=== PATIENT | female | born 1985 | race Caucasian/White ===

== ENCOUNTER 2022-05-09 10:31 | Inpatient (IN) | payer OTHER, SELFPAY ==
[2022-05-09 10:45] VITALS: BP 145/81; PULSE 95; RESP 18; TEMP 36.8; O2SAT 97; BMI 47.0
--- NOTE | 2022-05-09 11:04 | ED_ITS ---
HPI - Psych General Chief Complaint: Psychiatric Symptoms Stated Complaint: SI Time Seen by Provider: 05/09/22 10:47 Source: patient Mode of arrival: ambulatory Limitations: no limitations History of Present Illness MD complaint: suicidal ideation and feels depressed Onset (ago): day(s) (1) Duration: getting worse History of same: Yes Relieving factors: none Exacerbating factors: other Context: significant life stressor Associated psychiatric symptoms: depression and suicidal ideation Associated symptoms: denies other symptoms Treatments prior to arrival: none If self harm: admits thoughts of self harm Related Data Allergies Allergy/AdvReac Type Severity Reaction Status Date / Time Penicillins Allergy Unknown Unknown Verified 05/09/22 10:56 amoxicillin Allergy Unknown Unknown Uncoded 05/09/22 10:56 Review of Systems Review of Systems: Constitutional : No Fever, No Chills ENT/Mouth : No Ear Pain, No Nasal Congestion, No sore throat Eyes: No Eye Pain, No Swelling, No Redness Cardiovascular : No Chest Pain, No SOB Respiratory : No Cough, No Sputum, No Dyspnea Gastrointestinal : No Nausea, No Vomiting, No Diarrhea, No Hematochezia, No Melena Genitourinary : No Dysuria, No Urinary Frequency, No Hematuria Musculoskeletal : No Myalgias Skin : No Skin Lesions, No rash Neuro : No Weakness, No Numbness, No Paresthesias, No Dizziness, No Headache Psych : positive Anxiety, positive Depression, positive SI no HI Heme/Lymph: No Lymphadenopathy Endocrine : No Polyuria, No Polydipsia All other systems reviewed and are negative PMFSH Past Medical History Attestation statement: The following information was validated with the patient. Medical History Bipolar 1 disorder Social History Social History (Updated 05/09/22 @ 11:05 by Maria Del Carmen Conklin DO) Patient Tobacco Use Status: Tobacco use Unknown Substance Use Type: Marijuana Physical Exam Vital Signs: Vital Signs: Last Vital Signs Temp 98.2 F 05/09/22 10:45 Pulse 95 05/09/22 10:45 Resp 18 05/09/22 10:45 BP 145/81 H 05/09/22 10:45 Pulse Ox 97 05/09/22 10:45 O2 Del Method 05/09/22 10:45 BMI result Body Mass Index 47.0 Appearance: Alert. Oriented X3. No acute distress. Tearful and appears anxious at times Eyes: Pupils equal, round and reactive to light. ENT: Pharynx normal. Neck: Normal inspection. Neck supple. CVS: Normal heart rate and rhythm. Pulses normal. Respiratory: No respiratory distress. Breath sounds normal. Abdomen: Soft and nontender. Skin: Skin warm and dry. Normal skin color. Normal skin turgor. Extremities: No lower extremity edema. No calf ttp Neuro: Oriented X 3. No motor deficit. No sensory deficit. CN2-12 intact Course Course Course Narrative: Physician observation started at 1110am Patient placed in physician observation because the patient needed more time for BHN to assess the need for psych admission. At the time observation was started the patient's vitals were stable, patient is alert and oriented but slightly anxious, Neuro: nonfocal, CV RRR, Lungs clear MDM - Psych MDM Narrative Medical decision making narrative: 37 yo female hx of bipolar disorder states she is in a detention house for THC use - normally goes to [place] for her mental health issues states she is here for SI. At this time labs, BHN consult in place. Dispo per their recommendations. Discharge Plan Discharge Clinical Impression: Suicidal ideation Patient Disposition: Still a Patient
[2022-05-09 11:47] LABS: UPreg QC Valid YES; Urine Pregnancy NEGATIVE (NEGATIVE)
[2022-05-09 12:01] LABS: Amphetamine Screen Urine Not Detected (Not Detect); Barbiturates, Urine Not Detected (Not Detect); Benzodiazepines Screen Urine Not Detected (Not Detect); Cannabinoid Screen Urine Not Detected (Not Detect); Cocaine Screen Urine Not Detected (Not Detect); Fentanyl, urine Not Detected (Not Detect); Opiate Screen Urine Not Detected (Not Detect); Phencyclidine Screen Urine Not Detected (Not Detect)
[2022-05-09 12:05] LABS: MANUAL DIFF FLAG NO
[2022-05-09 12:07] LABS: COVID-19 Test Negative (Negative); IDNOW Serial# 16C4AD1C
[2022-05-09 12:08] LABS: Basophils Absolute Auto 0.1 X10*3/uL (0.0-0.2); Basophils Percent Auto 0.8 % (0-2); Eosinophils Absolute Auto 0.1 X10*3/uL (0.0-0.4); Eosinophils Percent Auto 1.5 % (0-4); Hematocrit 39.8 % (37.0-47.0); Hemoglobin 12.9 g/dl (12.0-16.0); Imm Gran Abs Auto 0.02 X10*3/uL (0.00-0.03); Imm Gran Pct Auto 0.3 % (0.0-0.4); Lymphocytes Absolute Auto 1.6 X10*3/uL (1.2-4.9); Lymphocytes Percent Auto 21.2 % (20-40); Mean Corpuscular HGB Conc 32.4 g/dl (31.0-35.0); Mean Corpuscular Hemoglobin 28.2 pg (27.0-33.0); Mean Corpuscular Volume 86.9 fL (80.0-98.0); Mean Platelet Volume 9.7 fL (9.4-12.3); Monocytes Absolute Auto 0.7 X10*3/uL (0.1-1.2); Monocytes Percent Auto 9.8 % (2-11); Neutrophils Absolute Auto 4.9 x10*3/uL (2.0-8.3); Neutrophils Percent Auto 66.4 % (45-73); Platelet Count 317 X10*3/uL (160-400); Red Blood Count 4.58 X10*6/uL (4.20-5.50); Red Cell Distribution Width 13.5 % (11.0-16.0); White Blood Count 7.4 X10*3/uL (4.8-10.8)
[2022-05-09 12:28] LABS: Alanine Aminotransferase 12 U/L (0-31); Albumin Level 4.3 g/dL (3.5-5.0); Alkaline Phosphatase 75 U/L (39-117); Anion Gap 15 (12-20); Aspartate Amino Transferase 12 U/L (5-31); Bilirubin Direct < 0.2 mg/dL (0.0-0.5); Bilirubin Total 0.3 mg/dL (0.0-1.0); Blood Urea Nitrogen 9 mg/dL (9-16); Calcium 9.4 mg/dL (8.4-10.2); Carbon Dioxide 25 mmol/L (22-29); Chloride 104 mmol/L (96-108); Creatinine Clr Calc Pharmacy 139.2; Estimated Glomerular Filt Rate > 60; Glucose Random 87 mg/dL (60-115); Magnesium 1.9 mg/dL (1.6-2.6); Potassium 4.5 mmol/L (3.3-5.1); Sodium 139 mmol/L (135-145); Total Protein 7.3 g/dL (6.5-8.0)
--- NOTE | 2022-05-09 12:44 | PHA.MEDREC ---
Pharmacy Consult ? Medication Reconciliation Pharmacy has completed the medication reconciliation.
--- NOTE | 2022-05-09 12:45 | HE.PHANOTE ---
Nurse (Kev) received many pt own medications. All medications were formulary medications, therefore we chose to seal up patients meds and leave it with pharmacy. Patient had about 8 bottles from [facility] pharmacy. Meds were sealed in med envelope and I brought it upstairs and placed it inside the pharmacy CII safe. Informed the nurse to leave these forms with patients chart to ensure patient receives them prior to discharge.
[2022-05-09 16:09] VITALS: BP 139/84; PULSE 83; RESP 17; TEMP 36.5; O2SAT 100
[2022-05-09] MEDS: Cholecalciferol (Vitamin D3) 25 MCG TABLET PO (16:39)
[2022-05-09] MEDS: Folic Acid 1 MG TABLET PO (16:39)
[2022-05-09] MEDS: ARIPiprazole 15 MG TABLET PO (16:39)
[2022-05-09] MEDS: buPROPion HCl XL 300 MG TAB.ER.24H PO (16:39)
[2022-05-09] MEDS: lamoTRIgine 100 MG TABLET 200 MG PO (19:59)
--- NOTE | 2022-05-09 22:49 | PC.NURSE ---
Patient has been sleeping comfortably, she was up for her PM medication, denies any issues at this time. Will continue to monitor.
--- NOTE | 2022-05-10 06:29 | MHC.CARE ---
Smart sheet submitted
--- NOTE | 2022-05-10 07:03 | PC.NURSE ---
Patient sleeping comfortably, no distress noted. Will continue to monitor.
[2022-05-10] MEDS: ARIPiprazole 15 MG TABLET PO (08:34)
[2022-05-10] MEDS: buPROPion HCl XL 300 MG TAB.ER.24H PO (08:34)
[2022-05-10] MEDS: lamoTRIgine 100 MG TABLET 200 MG PO ×2 (08:34→19:45)
[2022-05-10] MEDS: Cholecalciferol (Vitamin D3) 25 MCG TABLET PO (08:34)
[2022-05-10] MEDS: Folic Acid 1 MG TABLET PO (08:34)
[2022-05-10] MEDS: Acetaminophen 325 MG TABLET 650 MG PO (08:42)
--- NOTE | 2022-05-10 11:04 | PC.NURSE ---
resting comfortably throughout morning, ate breakfast, took all meds. seen by [facility].
--- NOTE | 2022-05-10 12:04 | PC.NURSE ---
occupational therapy at bedside with pt. pt aware of plan of care.
[2022-05-10 13:37] VITALS: BP 100/48; PULSE 78; RESP 18; TEMP 36.9; O2SAT 97
--- NOTE | 2022-05-10 13:40 | MHC.CARE ---
Pt seen this day for individual OT tx. Pt presents with solemn flat affect and reports feeling overwhelmed however agreeable to engage in conversation with this chief writer. Pt is receptive to coloring pages, word finds, and sensory item provided. Upon conclusion of session pt actively engages in coloring activity provided.
[2022-05-10] MEDS: Acetaminophen 325 MG TABLET 975 MG PO (19:46)
--- NOTE | 2022-05-11 06:24 | PC.NURSE ---
Patient slept through the night, no distress observed/reported, medication compliant, behavior pleasant and non concerning, disposition per [facility] is voluntary inpatient bed search, VSS, will continue to monitor.
[2022-05-11 06:27] VITALS: BP 114/55; PULSE 75; RESP 17; TEMP 36.9; O2SAT 97
[2022-05-11] MEDS: Folic Acid 1 MG TABLET PO (07:37)
[2022-05-11] MEDS: ARIPiprazole 15 MG TABLET PO (07:37)
[2022-05-11] MEDS: lamoTRIgine 100 MG TABLET 200 MG PO ×2 (07:37→20:35)
[2022-05-11] MEDS: buPROPion HCl XL 300 MG TAB.ER.24H PO (07:37)
[2022-05-11] MEDS: Cholecalciferol (Vitamin D3) 25 MCG TABLET PO (07:37)
[2022-05-11] MEDS: hydrOXYzine HCL 25 MG TABLET PO (07:40)
--- NOTE | 2022-05-11 07:41 | PC.NURSE ---
PT A/O X 4 NO SOB/BA NOTED SKIN PINK WARM DRY SPEAKS IN FULL SENTENCES. PT IS WATCHING TV. C/O SLIGHT ANXIETY, MED X 1 WITH ATARAX 25MG PO. PT IS BED SEARCH, PT IS AWARE OF PLAN OF CARE.
[2022-05-11 09:12] VITALS: BP 124/63; PULSE 78; RESP 16; TEMP 36.8; O2SAT 97
--- NOTE | 2022-05-11 11:25 | PC.NURSE ---
RN TO RN REPORT GIVEN TO PRADEEP PT AWARE OF PLAN OF CARE FOR INPATIENT BED.
[2022-05-11 13:40] VITALS: BP 147/72; PULSE 96; TEMP 36.3
--- NOTE | 2022-05-11 15:51 | PC.ADMIT ---
Pt is a 37 year old female presenting with increased hopelessness, anxiety and depression with SI. Pt utox positive for THC. Pt COVID negative. Pt is looking to get her medications figured out and to find housing as pt is homeless. Pt came from [facility] and liked it, but the pt is from [facility] and is homesick. She wants to go to her old [facility] in [facility]. She was removed from [facility] for relapsing on marijuana. Pt is labile and feels hopeless and she has no where to go. Pt states her depression and anxiety has been so bad its been difficult to shower. PT advocates for self and calm and cooperative, tearful. Provider notified and orders are placed. Monitor for safety and start pt treatment. Pt reports feeling safe and able to come to staff if needed.
[2022-05-11 18:04] VITALS: BP 119/69; PULSE 100; TEMP 36.3; O2SAT 96
[2022-05-11] MEDS: traZODone HCL 50 MG TABLET PO (20:34)
[2022-05-12] MEDS: Cholecalciferol (Vitamin D3) 25 MCG TABLET PO (09:18)
[2022-05-12] MEDS: Folic Acid 1 MG TABLET PO (09:18)
[2022-05-12] MEDS: ARIPiprazole 15 MG TABLET PO (09:18)
[2022-05-12] MEDS: buPROPion HCl XL 300 MG TAB.ER.24H PO (09:18)
[2022-05-12] MEDS: lamoTRIgine 100 MG TABLET 200 MG PO ×2 (09:19→20:01)
[2022-05-12 09:47] VITALS: BP 96/59; PULSE 73; RESP 16; TEMP 37.1; O2SAT 95
--- NOTE | 2022-05-12 10:50 | HO.PSYADMNOT ---
HPI Date of Service: 05/12/22 Chief Complaint: depression/SI Sources of Information: patient interviewed, chart reviewed and crisis/core team assessment reviewed HPI Subjective Notes: Conditional Voluntary Medical Problems Affecting Mental Status: No Narrative: As per nursing admission note: 37 year old female presenting with increased hopelessness, anxiety and depression with SI. Pt utox positive for THC. Pt COVID negative. Pt is looking to get her medications figured out and to find housing as pt is homeless. Pt came from [facility] and liked it, but the pt is from [facility] and is homesick. She wants to go to her old [facility] [place] in [facility]. She was removed from [facility] for relapsing on marijuana. Pt is labile and feels hopeless and she has no where to go. Pt states her depression and anxiety has been so bad its been difficult to shower. PT advocates for self and calm and cooperative, tearful Today reports feeling depressed, hopeless, suicidal. Denies plans. Sleep energy and appetite all last. Reports feeling this way for 2 weeks. No severiano. No psychosis. Denies recent substance use. Had been off medications for the best part of 3 weeks but restarted 2 weeks ago. Currently on Lamictal 200 mg and Abilify. Reports diagnosis of bipolar 2 disorder and last hypomanic episode was 2 years ago. Reports main issue with being off medication was relocating from [facility] to [facility]. Past medications she was unsure about but reports being on lithium in the past. Does not want to go back on lithium. Never on Seroquel but does not want to try same. Never on Vraylar. Past Psychiatric History: Diagnosis of bipolar 2 disorder. Substance use disorder. Last inpatient episode was in February. Denied history of suicide attempts. No providers in this area as from [facility]. On Lamictal and Abilify Medical Evaluation Reviewed: Yes [facility] Medical History Bipolar 1 disorder Social History: At [facility] [place] in [facility]. Originally from the [facility] and hopeful she can go to a different [facility] [place] closer to home. Single. No children. No legal issues. Denied any supportive family Substance History: Marijuana Trauma History: Denied Diagnostics Vital Signs (24Hr): Vital Signs - 24 hr 05/11/22 13:40 05/11/22 18:04 05/12/22 09:47 Temperature 97.4 F 97.4 F 98.8 F Pulse Rate 96 100 73 Respiratory Rate 16 Blood Pressure 147/72 H 119/69 96/59 L Pulse Oximetry 96 95 Oxygen Delivery Method Room Air Room Air BMI result Body Mass Index 47.0 Labs Results: 05/09/22 12:01 05/09/22 12:01 Meds/Allergies Meds Home Medications Medication Instructions Recorded Confirmed Type aripiprazole 15 mg tablet 1 tab PO DAILY 05/09/22 05/09/22 History bupropion HCl 300 mg 24 hr tablet, 1 tab PO DAILY 05/09/22 05/09/22 History extended release cholecalciferol (vitamin D3) 25 1 tab PO DAILY 05/09/22 05/09/22 History mcg (1,000 unit) tablet folic acid 1 mg tablet 1 tab PO DAILY 05/09/22 05/09/22 History hydroxyzine pamoate 25 mg capsule 1 cap PO Q6H PRN anxiety 05/09/22 05/09/22 History lamotrigine 200 mg tablet 1 tab PO BID 05/09/22 05/09/22 History Allergies Allergies Allergy/AdvReac Type Severity Reaction Status Date / Time Penicillins Allergy Unknown Unknown Verified 05/09/22 10:56 amoxicillin Allergy Unknown Unknown Uncoded 05/09/22 10:56 Mental Status Exam Mental Status Exam Narrative: In bed. Appropriately dressed. Hygiene okay. Organized. Depressed. Endorses suicidal thoughts but no plans. Feels safe. No HI. No psychosis. Insight judgment okay Assessment & Plan Assessment & Plan (1) Bipolar 2 disorder, major depressive episode: Status: Acute Code(s): F31.81 - Bipolar II disorder Assessment and Plan: Presents with major depressive episodes in the context of bipolar 2 disorder. Relocation and recent medication changes for/being without same appear to be contributing to current presentation. Is hopeful she can relocate back to [facility]. Will increase Abilify to 20 mg otherwise maintain Lamictal 200 mg twice daily Patient educated on: medication risk/benefits Informed Consent: understands Reason for continued inpatient stay Substantial Risk for: harm to self
[2022-05-12 15:58] VITALS: BP 128/83; PULSE 87; TEMP 36.6
[2022-05-12] MEDS: traZODone HCL 50 MG TABLET PO (20:02)
[2022-05-13 06:00] VITALS: RESP 18
[2022-05-13] MEDS: lamoTRIgine 100 MG TABLET 200 MG PO ×2 (09:16→20:17)
[2022-05-13] MEDS: Folic Acid 1 MG TABLET PO (09:16)
[2022-05-13] MEDS: ARIPiprazole 20 MG TABLET PO (09:16)
[2022-05-13] MEDS: Cholecalciferol (Vitamin D3) 25 MCG TABLET PO (09:16)
[2022-05-13] MEDS: buPROPion HCl XL 300 MG TAB.ER.24H PO (09:16)
--- NOTE | 2022-05-13 13:15 | P.PNPSI_ITS ---
Subjective Subjective Date of Service: 05/13/22 Reason For Visit: depression/SI Subjective Notes: Conditional Voluntary Medical Problems Affecting Mental Status: No Interim History: Overall no significant issues since yesterday. Patient reports that sleep was poor last night. Also reports drinking 2 L of Coca[employer]a before bed. Education provided around potential impact of same. Reports mood slightly better. Is [id number] in [place] before. Reports having to leave this program in December and may not be able to return for 6 months or 1 year, but hopeful this may not be the case. Reports if she cannot return there, then she will return to [facility]. Reports her mom and support is in [place] and she is familiar with the meetings in that area also. Medication Compliance: Yes Side effects from medications: No Attending Groups: No Review of Systems Acute medical concerns: No Review of Systems Review of Systems Unremarkable Mental Status Exam Mental Status Exam Narrative: Appropriately dressed. Hygiene okay. Organized. Less depressed. Deny suicidal thoughts. Feels safe. No HI. No psychosis. Insight judgment okay Diagnostics Vital Signs (24Hr): Vital Signs - 24 hr 05/12/22 15:58 Temperature 97.8 F Pulse Rate 87 Blood Pressure 128/83 BMI result Body Mass Index 47.0 Labs Results: 05/09/22 12:01 05/09/22 12:01 Medications Medications Current Medications Acetaminophen (Acetaminophen 325 Mg Tablet) 650 mg PO Q6H PRN PRN Reason: Headache/Pain Mild Scale (1-3) Al Hydroxide/Mg Hydroxide (Magnesium Hydrox/Alum Hydrox 30 Ml Oral.Susp) 30 ml PO Q6H PRN PRN Reason: Heartburn/Nausea Aripiprazole (Aripiprazole 20 Mg Tablet) 20 mg PO DAILY MADDY Last Admin: 05/13/22 09:16 Dose: 20 mg Bupropion HCl (Bupropion Hcl Xl 300 Mg Tab.Er.24h) 300 mg PO DAILY MADDY Last Admin: 05/13/22 09:16 Dose: 300 mg Folic Acid (Folic Acid 1 Mg Tablet) 1 mg PO DAILY MADDY Last Admin: 05/13/22 09:16 Dose: 1 mg Hydroxyzine HCl (Hydroxyzine Hcl 25 Mg Tablet) 25 mg PO Q6H PRN PRN Reason: anxiety Last Admin: 05/11/22 07:40 Dose: 25 mg Hydroxyzine HCl (Hydroxyzine Hcl 25 Mg Tablet) 25 mg PO Q6H PRN PRN Reason: Anxiety Lamotrigine (Lamotrigine 100 Mg Tablet) 200 mg PO BID [facility] Last Admin: 05/13/22 09:16 Dose: 200 mg Magnesium Hydroxide (Milk Of Magnesia 30 Ml Oral.Susp) 30 ml PO DAILY PRN PRN Reason: Constipation Nicotine Polacrilex (Nicotine Polacrilex 2 Mg Gum) 4 mg BUCCAL Q2H PRN PRN Reason: Nicotine Cravings Trazodone HCl (Trazodone Hcl 50 Mg Tablet) 50 mg PO BEDTIME PRN PRN Reason: Insomnia Last Admin: 05/12/22 20:02 Dose: 50 mg Vitamin D (Cholecalciferol (Vitamin D3) 25 Mcg Tablet) 25 mcg PO DAILY [facility] Last Admin: 05/13/22 09:16 Dose: 25 mcg Allergies Allergies Allergy/AdvReac Type Severity Reaction Status Date / Time Penicillins Allergy Unknown Unknown Verified 05/09/22 10:56 amoxicillin Allergy Unknown Unknown Uncoded 05/09/22 10:56 Assessment & Plan Assessment & Plan (1) Bipolar 2 disorder, major depressive episode: Status: Acute Code(s): F31.81 - Bipolar II disorder Assessment and Plan: Presents with major depressive episodes in the context of bipolar 2 disorder. Relocation and recent medication changes for/being without same appear to be contributing to current presentation. Is hopeful she can relocate back to [facility]. Will increase Abilify to 20 mg otherwise maintain Lamictal 200 mg twice daily 05/13/22: hopeful she can return to [facility] she was staying in in [place] before. Reports having to leave this program in December and may not be able to return for 6 months or 1 year, but hopeful this may not be the case. Reports if she cannot return there, then she will return to [facility]. Reports her mom and support is in [place] and she is familiar with the meetings in that area also I spent minutes with the patient and/or on the patient floor today, greater than?50% of which was spent counseling/coordinating care. Reason for contiued inpatient stay Substantial Risk for: rapid decompensation
[2022-05-13 16:09] VITALS: BP 152/91; PULSE 114; TEMP 36.2
[2022-05-13] MEDS: traZODone HCL 50 MG TABLET PO (20:41)
[2022-05-14] MEDS: lamoTRIgine 100 MG TABLET 200 MG PO ×2 (08:27→19:20)
[2022-05-14] MEDS: Cholecalciferol (Vitamin D3) 25 MCG TABLET PO (08:28)
[2022-05-14] MEDS: Folic Acid 1 MG TABLET PO (08:28)
[2022-05-14] MEDS: buPROPion HCl XL 300 MG TAB.ER.24H PO (08:28)
[2022-05-14] MEDS: ARIPiprazole 20 MG TABLET PO (08:28)
[2022-05-14 09:58] VITALS: BP 113/51; PULSE 76; RESP 16; TEMP 36.4; O2SAT 96
--- NOTE | 2022-05-14 16:48 | P.PNPSI_ITS ---
Subjective Subjective Date of Service: 05/14/22 Reason For Visit: depression/SI Interim History: Patient reports that she is feeling better however she still depressed and would like Wellbutrin to be increased. It was started this past summer. Patient denies any SI and says all passive thoughts about being have fully resolved. Patient has trouble sleeping and says melatonin has helped in the past and prefers that. She also would like hydroxyzine increased. Patient is hopeful about getting back to previous residential. She has about history which includes ADHD but she has never been treated for it. No PTSD. patient reports history of alcohol abuse but denies all other drug abuse other than intermittent cannabis Mental Status Exam Mental Status Exam Narrative: Pt is alert and oriented; behavior is cooperative, friendly and calm; patient is not in distress; dressed in casual attire with unkempt hair but adequate hygiene; mood is described as good and affect congruent; eye contact appropriate; Speech is normal rate, volume and prosody and not pressured; no psychomotor agitation/retardation present; thought process is organized and goal directed; Thought content is on tx; otherwise pertinent to relevant topics and without any delusional content, paranoid ideations or grandiosity; denies any SI/HI. There is no evidence of perceptual disturbance. Patients insight and judgment appear intact. Diagnostics Vital Signs (24Hr): Vital Signs - 24 hr 05/14/22 09:58 Temperature 97.6 F Pulse Rate 76 Respiratory Rate 16 Blood Pressure 113/51 L Pulse Oximetry 96 Oxygen Delivery Method Room Air BMI result Body Mass Index 47.0 Labs Results: 05/09/22 12:01 05/09/22 12:01 Medications Medications Current Medications Acetaminophen (Acetaminophen 325 Mg Tablet) 650 mg PO Q6H PRN PRN Reason: Headache/Pain Mild Scale (1-3) Al Hydroxide/Mg Hydroxide (Magnesium Hydrox/Alum Hydrox 30 Ml Oral.Susp) 30 ml PO Q6H PRN PRN Reason: Heartburn/Nausea Aripiprazole (Aripiprazole 20 Mg Tablet) 20 mg PO DAILY [facility] Last Admin: 05/14/22 08:28 Dose: 20 mg Bupropion HCl (Bupropion Hcl Xl 300 Mg Tab.Er.24h) 300 mg PO DAILY [facility] Last Admin: 05/14/22 08:28 Dose: 300 mg Folic Acid (Folic Acid 1 Mg Tablet) 1 mg PO DAILY [facility] Last Admin: 05/14/22 08:28 Dose: 1 mg Hydroxyzine HCl (Hydroxyzine Hcl 25 Mg Tablet) 25 mg PO Q6H PRN PRN Reason: anxiety Last Admin: 05/11/22 07:40 Dose: 25 mg Hydroxyzine HCl (Hydroxyzine Hcl 25 Mg Tablet) 25 mg PO Q6H PRN PRN Reason: Anxiety Lamotrigine (Lamotrigine 100 Mg Tablet) 200 mg PO BID [facility] Last Admin: 05/14/22 08:27 Dose: 200 mg Magnesium Hydroxide (Milk Of Magnesia 30 Ml Oral.Susp) 30 ml PO DAILY PRN PRN Reason: Constipation Nicotine Polacrilex (Nicotine Polacrilex 2 Mg Gum) 4 mg BUCCAL Q2H PRN PRN Reason: Nicotine Cravings Trazodone HCl (Trazodone Hcl 50 Mg Tablet) 50 mg PO BEDTIME PRN PRN Reason: Insomnia Last Admin: 05/13/22 20:41 Dose: 50 mg Vitamin D (Cholecalciferol (Vitamin D3) 25 Mcg Tablet) 25 mcg PO DAILY [facility] Last Admin: 05/14/22 08:28 Dose: 25 mcg Allergies Allergies Allergy/AdvReac Type Severity Reaction Status Date / Time Penicillins Allergy Unknown Unknown Verified 05/09/22 10:56 amoxicillin Allergy Unknown Unknown Uncoded 05/09/22 10:56 Assessment & Plan Assessment & Plan (1) Bipolar 2 disorder, major depressive episode: Status: Acute Code(s): F31.81 - Bipolar II disorder Plan Presents with major depressive episodes in the context of bipolar 2 disorder. Relocation and recent medication changes for/being without same appear to be contributing to current presentation. Is hopeful she can relocate back to [facility]. Will increase Abilify to 20 mg otherwise maintain Lamictal 200 mg twice daily 05/13/22: [facility] in [place] before. Reports having to leave this program in December and may not be able to return for 6 months or 1 year, but hopeful this may not be the case. Reports if she cannot return there, then she will return to [facility]. Reports her mom and support is in [place] and she is familiar with the meetings in that area also 05/14 patient reports feeling better; denies SI and passive wish fully resolved; still feels depressed and would like Wellbutrin increased. Has been on Lamictal for years but was started on Abilify and Wellbutrin this past summer. Plan: CV Q 15 minute checks Increase Wellbutrin XL to 450 mg Continue Abilify 20 mg says; raised from 15 mg by admitting provider Continue Lamictal 200 mg b.i.d. Started melatonin at patient's request Increased Atarax at patient's request I spent minutes with the patient and/or on the patient floor today, gre ater than?50% of which was spent counseling/coordinating care. Patient educated on: diagnosis, medication risk/benefits and substance abuse Informed Consent: understands Reason for contiued inpatient stay Substantial Risk for: stable for discharge
[2022-05-14 18:00] VITALS: BP 128/84; PULSE 89; RESP 16; TEMP 36.8; O2SAT 97
[2022-05-14] MEDS: Melatonin 3 MG TABLET 9 MG PO (19:20)
[2022-05-15 06:00] VITALS: BP 92/63; PULSE 64; RESP 16; TEMP 36.7; O2SAT 96
[2022-05-15] MEDS: Cholecalciferol (Vitamin D3) 25 MCG TABLET PO (08:41)
[2022-05-15] MEDS: Folic Acid 1 MG TABLET PO (08:41)
[2022-05-15] MEDS: lamoTRIgine 100 MG TABLET 200 MG PO ×2 (08:41→21:24)
[2022-05-15] MEDS: buPROPion HCl XL 150 MG TAB.ER.24H 450 MG PO (08:41)
[2022-05-15] MEDS: ARIPiprazole 20 MG TABLET PO (08:42)
--- NOTE | 2022-05-15 17:00 | P.PNPSI_ITS ---
Subjective Subjective Date of Service: 05/15/22 Reason For Visit: depression/SI Interim History: Patient reports that her mood remains much better and though still depressed, feels overall to have significantly improved. She denies any SI or passive wish at all. Patient still has some trouble sleeping though she agrees this is a chronic issue and may not resolve on the unit. She forgot that she had multiple PRNs available to help her sleep and says she will avail of them tonight. Patient says she is feeling ready for discharge and asks if this will be allowed should a bed come up at desired program; promotion writer agrees that she is ready to continue treatment in the community and that this is the plan. Mental Status Exam Mental Status Exam Narrative: Pt is alert and oriented; behavior is cooperative, friendly and calm; patient is not in distress; dressed in casual attire with unkempt hair but adequate hygiene; mood is described as good and affect congruent; eye contact appropriate; Speech is normal rate, volume and prosody and not pressured; no psychomotor agitation/retardation present; thought process is organized and goal directed; Thought content is on tx; otherwise pertinent to relevant topics and without any delusional content, paranoid ideations or grandiosity; denies any SI/HI. There is no evidence of perceptual disturbance. Patients insight and judgment appear intact. Diagnostics Vital Signs (24Hr): Vital Signs - 24 hr 05/14/22 18:00 05/15/22 06:00 Temperature 98.2 F 98.1 F Pulse Rate 89 64 Respiratory Rate 16 16 Blood Pressure 128/84 92/63 Pulse Oximetry 97 96 Oxygen Delivery Method Room Air Room Air BMI result Body Mass Index 47.0 Labs Results: 05/09/22 12:01 05/09/22 12:01 Medications Medications Current Medications Acetaminophen (Acetaminophen 325 Mg Tablet) 650 mg PO Q6H PRN PRN Reason: Headache/Pain Mild Scale (1-3) Al Hydroxide/Mg Hydroxide (Magnesium Hydrox/Alum Hydrox 30 Ml Oral.Susp) 30 ml PO Q6H PRN PRN Reason: Heartburn/Nausea Aripiprazole (Aripiprazole 20 Mg Tablet) 20 mg PO DAILY [facility] Last Admin: 05/15/22 08:42 Dose: 20 mg Bupropion HCl (Bupropion Hcl Xl 150 Mg Tab.Er.24h) 450 mg PO DAILY [facility] Last Admin: 05/15/22 08:41 Dose: 450 mg Folic Acid (Folic Acid 1 Mg Tablet) 1 mg PO DAILY [facility] Last Admin: 05/15/22 08:41 Dose: 1 mg Hydroxyzine HCl (Hydroxyzine Hcl 50 Mg Tablet) 50 mg PO Q6H PRN PRN Reason: anxiety/insomnia Lamotrigine (Lamotrigine 100 Mg Tablet) 200 mg PO BID [facility] Last Admin: 05/15/22 08:41 Dose: 200 mg Magnesium Hydroxide (Milk Of Magnesia 30 Ml Oral.Susp) 30 ml PO DAILY PRN PRN Reason: Constipation Melatonin (Melatonin 3 Mg Tablet) 9 mg PO BEDTIME [facility] Last Admin: 05/14/22 19:20 Dose: 9 mg Nicotine Polacrilex (Nicotine Polacrilex 2 Mg Gum) 4 mg BUCCAL Q2H PRN PRN Reason: Nicotine Cravings Trazodone HCl (Trazodone Hcl 100 Mg Tablet) 100 mg PO BEDTIME [facility] Vitamin D (Cholecalciferol (Vitamin D3) 25 Mcg Tablet) 25 mcg PO DAILY [facility] Last Admin: 05/15/22 08:41 Dose: 25 mcg Allergies Allergies Allergy/AdvReac Type Severity Reaction Status Date / Time Penicillins Allergy Unknown Unknown Verified 05/09/22 10:56 amoxicillin Allergy Unknown Unknown Uncoded 05/09/22 10:56 Assessment & Plan Assessment & Plan (1) Bipolar 2 disorder, major depressive episode: Status: Acute Code(s): F31.81 - Bipolar II disorder Plan Presents with major depressive episodes in the context of bipolar 2 disorder. Relocation and recent medication changes for/being without same appear to be contributing to current presentation. Is hopeful she can relocate back to [facility]. Will increase Abilify to 20 mg otherwise maintain Lamictal 200 mg twice daily 05/13/22: hopeful she can return to [facility] she was staying in in [place] before. Reports having to leave this program in December and may not be able to return for 6 months or 1 year, but hopeful this may not be the case. Reports if she cannot return there, then she will return to [facility]. Reports her mom and support is in [place] and she is familiar with the NA meetings in that area also 05/14 patient reports feeling better; denies SI and passive wish fully resolved; still feels depressed and would like Wellbutrin increased. Has been on Lamictal for years but was started on Abilify and Wellbutrin this past summer. 05/15 patient remains in significantly improved mood, no SI no passive wish, no AVH; tolerating medications well. Still some trouble with insomnia however this is chronic. Patient will try to use more PRNs. Patient feels ready for discharge back to program when bed is available; promotion writer agrees that she is ready to continue treatment in the community. That said, promotion writer feels it is significantly in patient's best interest that she be discharge back to a structured environment for continued stability. Plan: CV Q 15 minute checks Increase Wellbutrin XL to 450 mg Continue Abilify 20 mg says; raised from 15 mg by admitting provider Continue Lamictal 200 mg b.i.d. Started melatonin at patient's request Increased Atarax at patient's request I spent minutes with the patient and/or on the patient floor today, greater than?50% of which was spent counseling/coordinating care. Patient educated on: diagnosis and medication risk/benefits Informed Consent: understands Reason for contiued inpatient stay Substantial Risk for: stable for discharge
[2022-05-15 18:00] VITALS: BP 143/79; PULSE 90; TEMP 36.6; O2SAT 97
[2022-05-15] MEDS: Melatonin 3 MG TABLET 9 MG PO (21:25)
[2022-05-15] MEDS: traZODone HCL 100 MG TABLET PO (21:25)
[2022-05-16] MEDS: buPROPion HCl XL 150 MG TAB.ER.24H 450 MG PO (08:26)
[2022-05-16] MEDS: Cholecalciferol (Vitamin D3) 25 MCG TABLET PO (08:27)
[2022-05-16] MEDS: lamoTRIgine 100 MG TABLET 200 MG PO ×2 (08:27→21:24)
[2022-05-16] MEDS: Folic Acid 1 MG TABLET PO (08:27)
[2022-05-16] MEDS: ARIPiprazole 20 MG TABLET PO (08:28)
[2022-05-16 09:19] VITALS: RESP 16
--- NOTE | 2022-05-16 11:01 | P.PNPSI_ITS ---
Subjective Subjective Date of Service: 05/16/22 Reason For Visit: depression/SI Interim History: Patient reports mood is good, no SI, still wants to discharge back to program; still having trouble sleep. Mental Status Exam Mental Status Exam Narrative: Pt is alert and oriented; behavior is cooperative, friendly and calm; patient is not in distress; dressed in casual attire with unkempt hair but adequate hygiene; mood is described as good and affect congruent; eye contact appropriate; Speech is normal rate, volume and prosody and not pressured; no psychomotor agitation/retardation present; thought process is organized and goal directed; Thought content is on tx; otherwise pertinent to relevant topics and without any delusional content, paranoid ideations or grandiosity; denies any SI/HI. There is no evidence of perceptual disturbance. Patients insight and judgment appear intact. Diagnostics Vital Signs (24Hr): Vital Signs - 24 hr 05/15/22 18:00 05/16/22 09:19 Temperature 97.8 F Pulse Rate 90 Respiratory Rate 16 Blood Pressure 143/79 H Pulse Oximetry 97 Oxygen Delivery Method Room Air BMI result Body Mass Index 47.0 Labs Results: 05/09/22 12:01 05/09/22 12:01 Medications Medications Current Medications Acetaminophen (Acetaminophen 325 Mg Tablet) 650 mg PO Q6H PRN PRN Reason: Headache/Pain Mild Scale (1-3) Al Hydroxide/Mg Hydroxide (Magnesium Hydrox/Alum Hydrox 30 Ml Oral.Susp) 30 ml PO Q6H PRN PRN Reason: Heartburn/Nausea Aripiprazole (Aripiprazole 20 Mg Tablet) 20 mg PO DAILY [facility] Last Admin: 05/16/22 08:28 Dose: 20 mg Bupropion HCl (Bupropion Hcl Xl 150 Mg Tab.Er.24h) 450 mg PO DAILY [facility] Last Admin: 05/16/22 08:26 Dose: 450 mg Folic Acid (Folic Acid 1 Mg Tablet) 1 mg PO DAILY [facility] Last Admin: 05/16/22 08:27 Dose: 1 mg Hydroxyzine HCl (Hydroxyzine Hcl 50 Mg Tablet) 50 mg PO Q6H PRN PRN Reason: anxiety/insomnia Lamotrigine (Lamotrigine 100 Mg Tablet) 200 mg PO BID [facility] Last Admin: 05/16/22 08:27 Dose: 200 mg Magnesium Hydroxide (Milk Of Magnesia 30 Ml Oral.Susp) 30 ml PO DAILY PRN PRN Reason: Constipation Melatonin (Melatonin 3 Mg Tablet) 9 mg PO BEDTIME [facility] Last Admin: 05/15/22 21:25 Dose: 9 mg Nicotine Polacrilex (Nicotine Polacrilex 2 Mg Gum) 4 mg BUCCAL Q2H PRN PRN Reason: Nicotine Cravings Trazodone HCl (Trazodone Hcl 100 Mg Tablet) 100 mg PO BEDTIME [facility] Last Admin: 05/15/22 21:25 Dose: 100 mg Vitamin D (Cholecalciferol (Vitamin D3) 25 Mcg Tablet) 25 mcg PO DAILY [facility] Last Admin: 05/16/22 08:27 Dose: 25 mcg Allergies Allergies Allergy/AdvReac Type Severity Reaction Status Date / Time Penicillins Allergy Unknown Unknown Verified 05/09/22 10:56 amoxicillin Allergy Unknown Unknown Uncoded 05/09/22 10:56 Assessment & Plan Assessment & Plan (1) Bipolar 2 disorder, major depressive episode: Status: Acute Code(s): F31.81 - Bipolar II disorder Plan Presents with major depressive episodes in the context of bipolar 2 disorder. Relocation and recent medication changes for/being without same appear to be contributing to current presentation. Is hopeful she can relocate back to [facility]. Will increase Abilify to 20 mg otherwise maintain Lamictal 200 mg twice daily 05/13/22: hopeful she can return to [facility] she was staying in in [place] before. Reports having to leave this program in December and may not be able to return for 6 months or 1 year, but hopeful this may not be the case. Reports if she cannot return there, then she will return to [facility]. Reports her mom and support is in [place] and she is familiar with the meetings in that area also 05/14 patient reports feeling better; denies SI and passive wish fully resolved; still feels depressed and would like Wellbutrin increased. Has been on Lamictal for years but was started on Abilify and Wellbutrin this past s ummer. 05/15 patient remains in significantly improved mood, no SI no passive wish, no AVH; tolerating medications well. Still some trouble with insomnia however this is chronic. Patient will try to use more PRNs. Patient feels ready for discharge back to [facility] when bed is available; development writer agrees that she is ready to continue treatment in the community. That said, development writer feels it is significantly in patient's best interest that she be discharge back to a structured environment for continued stability. 05/16 patient remained stable Plan: CV Q 15 minute checks Increase Wellbutrin XL to 450 mg Continue Abilify 20 mg says; raised from 15 mg by admitting provider Continue Lamictal 200 mg b.i.d. Started melatonin at patient's request Increased Atarax at patient's request I spent minutes with the patient and/or on the patient floor today, greater than?50% of which was spent counseling/coordinating care. Patient educated on: diagnosis Reason for contiued inpatient stay Substantial Risk for: stable for discharge
[2022-05-16 19:20] VITALS: BP 109/51; PULSE 84; TEMP 36.8
[2022-05-16] MEDS: Melatonin 3 MG TABLET 9 MG PO (21:24)
[2022-05-16] MEDS: traZODone HCL 100 MG TABLET PO (21:25)
[2022-05-17 06:00] VITALS: BP 97/49; PULSE 66; RESP 18; TEMP 36.9; O2SAT 97
[2022-05-17] MEDS: Folic Acid 1 MG TABLET PO (10:03)
[2022-05-17] MEDS: ARIPiprazole 20 MG TABLET PO (10:03)
[2022-05-17] MEDS: buPROPion HCl XL 150 MG TAB.ER.24H 450 MG PO (10:03)
[2022-05-17] MEDS: lamoTRIgine 100 MG TABLET 200 MG PO ×2 (10:03→20:38)
[2022-05-17] MEDS: Cholecalciferol (Vitamin D3) 25 MCG TABLET PO (10:03)
--- NOTE | 2022-05-17 15:20 | P.PNPSI_ITS ---
Subjective Subjective Date of Service: 05/17/22 Reason For Visit: depression/SI Interim History: Patient reports good mood, no SI, no AVH, feels optimistic and looking forward to going back to [facility]. Feels medications are working well. Still struggling with sleep but again this is chronic and patient says she will hopefully be able to sleep better once back familiar area Mental Status Exam Mental Status Exam Narrative: Pt is alert and oriented; behavior is cooperative, friendly and calm; patient is not in distress; dressed in casual attire with unkempt hair but adequate hygiene; mood is described as good and affect congruent; eye contact appropriate; Speech is normal rate, volume and prosody and not pressured; no psychomotor agitation/retardation present; thought process is organized and goal directed; Thought content is on tx; otherwise pertinent to relevant topics and without any delusional content, paranoid ideations or grandiosity; denies any SI/HI. There is no evidence of perceptual disturbance. Patients insight and judgment appear intact. Diagnostics Vital Signs (24Hr): Vital Signs - 24 hr 05/16/22 19:20 05/17/22 06:00 Temperature 98.2 F 98.5 F Pulse Rate 84 66 Respiratory Rate 18 Blood Pressure 109/51 L 97/49 L Pulse Oximetry 97 Oxygen Delivery Method Room Air BMI result Body Mass Index 47.0 Labs Results: 05/09/22 12:01 05/09/22 12:01 Medications Medications Current Medications Acetaminophen (Acetaminophen 325 Mg Tablet) 650 mg PO Q6H PRN PRN Reason: Headache/Pain Mild Scale (1-3) Al Hydroxide/Mg Hydroxide (Magnesium Hydrox/Alum Hydrox 30 Ml Oral.Susp) 30 ml PO Q6H PRN PRN Reason: Heartburn/Nausea Aripiprazole (Aripiprazole 20 Mg Tablet) 20 mg PO DAILY [facility] Last Admin: 05/17/22 10:03 Dose: 20 mg Bupropion HCl (Bupropion Hcl Xl 150 Mg Tab.Er.24h) 450 mg PO DAILY [facility] Last Admin: 05/17/22 10:03 Dose: 450 mg Folic Acid (Folic Acid 1 Mg Tablet) 1 mg PO DAILY [facility] Last Admin: 05/17/22 10:03 Dose: 1 mg Hydroxyzine HCl (Hydroxyzine Hcl 50 Mg Tablet) 50 mg PO Q6H PRN PRN Reason: anxiety/insomnia Lamotrigine (Lamotrigine 100 Mg Tablet) 200 mg PO BID [facility] Last Admin: 05/17/22 10:03 Dose: 200 mg Magnesium Hydroxide (Milk Of Magnesia 30 Ml Oral.Susp) 30 ml PO DAILY PRN PRN Reason: Constipation Melatonin (Melatonin 3 Mg Tablet) 9 mg PO BEDTIME [facility] Last Admin: 05/16/22 21:24 Dose: 9 mg Nicotine Polacrilex (Nicotine Polacrilex 2 Mg Gum) 4 mg BUCCAL Q2H PRN PRN Reason: Nicotine Cravings Trazodone HCl (Trazodone Hcl 100 Mg Tablet) 100 mg PO BEDTIME [facility] Last Admin: 05/16/22 21:25 Dose: 100 mg Vitamin D (Cholecalciferol (Vitamin D3) 25 Mcg Tablet) 25 mcg PO DAILY [facility] Last Admin: 05/17/22 10:03 Dose: 25 mcg Allergies Allergies Allergy/AdvReac Type Severity Reaction Status Date / Time Penicillins Allergy Unknown Unknown Verified 05/09/22 10:56 amoxicillin Allergy Unknown Unknown Uncoded 05/09/22 10:56 Assessment & Plan Assessment & Plan (1) Bipolar 2 disorder, major depressive episode: Status: Acute Code(s): F31.81 - Bipolar II disorder Plan Presents with major depressive episodes in the context of bipolar 2 disorder. Relocation and recent medication changes for/being without same appear to be contributing to current presentation. Is hopeful she can relocate back to [facility]. Will increase Abilify to 20 mg otherwise maintain Lamictal 200 mg twice daily 05/13/22: hopeful she can return to [facility] she was staying in in [place] before. Reports having to leave this program in December and may not be able to return for 6 months or 1 year, but hopeful this may not be the case. Reports if she cannot return there, then she will return to [facility]. Reports her mom and support is in [place] and she is familiar with the meetings in that area also 05/14 patient reports feeling better; denies SI and passive wish fully resolved; still feels depressed and would like Wellbutrin increased. Has been on Lamictal for years but was started on Abilify and Wellbutrin this past summer. 05/15 patient remains in significantly improved mood, no SI no passive wish, no AVH; tolerating medications well. Still some trouble with insomnia however this is chronic. Patient will try to use more PRNs. Patient feels ready for discharge back to program when bed is available; marine underwriter agrees that she is ready to continue treatment in the community. That said, marine underwriter feels it is significantly in patient's best interest that she be discharge back to a structured environment for continued stability. 05/16 patient remained stable 05/17 patient remains stable, good mood no SI, tolerating medications which she feels are very helpful. Social and appropriate in the milieu. Optimistic and looking forward to going back to [facility]. Patient is discharging to a stable, therapeutic environment. She is not in imminent risk for harm to self or others and her request for discharge honored. Plan: CV Q 15 minute checks Increase Wellbutrin XL to 450 mg Continue Abilify 20 mg says; raised from 15 mg by admitting provider Continue Lamictal 200 mg b.i.d. Started melatonin at patient's request Increased Atarax at patient's request I spent minutes with the patient and/or on the patient floor today, greater than?50% of which was spent counseling/coordinating care. Patient educated on: diagnosis Informed Consent: understands Reason for contiued inpatient stay Substantial Risk for: stable for discharge
--- NOTE | 2022-05-17 16:41 | PM.PSYDC ---
DS: Providers Provider Date of Service: 05/18/22 Date of admission: 05/11/22 12:35 Date of discharge: 05/18/22 Primary care physician: Unknown Physician Attending physician on admission: Isra Higgins Attending physician on discharge: Keshawn Araujo DS: Diagnosis Discharge Diagnosis (1) Bipolar 2 disorder, major depressive episode: Status: Acute DS: Medications Discharge Medications Home Medications: Previous Rx's Medication Instructions Recorded aripiprazole 20 mg tablet (Abilify) 20 mg PO DAILY 30 days #30 tabs 05/17/22 bupropion HCl 150 mg 24 hr tablet, 450 mg PO DAILY 30 days #90 tabs 05/17/22 extended release cholecalciferol (vitamin D3) 25 25 mcg PO DAILY 30 days #30 tabs 05/17/22 mcg (1,000 unit) tablet folic acid 1 mg tablet 1 mg PO DAILY 30 days #30 tabs 05/17/22 hydroxyzine HCl 50 mg tablet 50 mg PO Q6H PRN anxiety/insomnia 05/17/22 30 days #90 tabs lamotrigine 200 mg tablet 200 mg PO BID 30 days #60 tabs 05/17/22 melatonin 3 mg tablet 9 mg PO BEDTIME PRN sleep 30 days 05/17/22 #90 tabs Mental Status Exam Mental Status Exam Narrative: Pt is alert and oriented; behavior is cooperative, friendly and calm; patient is not in distress; dressed in casual attire with unkempt hair but adequate hygiene; mood is described as good and affect congruent; eye contact appropriate; Speech is normal rate, volume and prosody and not pressured; no psychomotor agitation/retardation present; thought process is organized and goal directed; Thought content is on tx; otherwise pertinent to relevant topics and without any delusional content, paranoid ideations or grandiosity; denies any SI/HI. There is no evidence of perceptual disturbance. Patients insight and judgment are intact. DS: Summary Hospital Course Hospital Course: HPI: Presents with major depressive episodes in the context of bipolar 2 disorder.? Relocation and recent medication changes for/being without same appear to be contributing to current presentation.? Is hopeful she can relocate back to [facility].? Will increase Abilify to 20 mg otherwise maintain Lamictal 200 mg twice daily; [facility] she was staying in in [place] before.? Reports having to leave this program in December and may not be able to return for 6 months or 1 year, but hopeful this may not be the case.? Reports if she cannot return there, then she will return to [facility].? Reports her mom and support is in [place] and she is familiar with the NA meetings in that area also Hospital course: On admission patient was depressed but Abilify increased in with milieu therapy mood improved. Patient denied all SI and remained without any SI or passive wish throughout her admission. Patient continued to report feeling better however mood remained depressed and so she asked for Wellbutrin to be increased which it was with good effect. Thus forward patient remained in the significantly improved mood, bright affect, optimistic and looking forward to returning to [facility]. Patient had trouble sleeping however said this was chronic and she was not overly concerned about it. [facility] bed opened and pt accepted. Patient is discharging to a stable, therapeutic environment.? She is not in imminent risk for harm to self or others and her request for discharge honored. Time spent discussing smoking cessation with patient: 3 to 10 minutes Status at Discharge Functional status at discharge: independent ambulation Overall status at discharge: patient is back to baseline Time Spent with Patient Time attestation: Total time spent providing and/or coordinating discharge services: Time spent: Less than 30 minutes Discharge Plan Discharge Anticipated Discharge Date/Time: 05/18/22 10:30 Patient Disposition: Home, Self-Care Discharge Diagnosis: Bipolar type II; most recently depressed in full remission Referrals: Rika (Therapist at [facility]) [Other] - 05/21/22 4:00 pm (Telehealth) Physician,Unknown J [Primary Care Provider] - 1 Week Discharge Medications: New aripiprazole [Abilify] 20 mg Tablet 20 mg PO DAILY 30 Days Qty: 30 0RF bupropion HCl 150 mg Tablet Extended Release 24 Hr 450 mg PO DAILY 30 Days Qty: 90 0RF hydroxyzine HCl 50 mg Tablet 50 mg PO Q6H PRN (Reason: anxiety/insomnia) 30 Days Qty: 90 0RF melatonin 3 mg Tablet 9 mg PO BEDTIME PRN (Reason: sleep) 30 Days Qty: 90 0RF Changed lamotrigine 200 mg tablet 200 mg PO BID 30 Days Qty: 60 0RF folic acid 1 mg tablet 1 mg PO DAILY 30 Days Qty: 30 0RF cholecalciferol (vitamin D3) 25 mcg (1,000 unit) tablet 25 mcg PO DAILY 30 Days Qty: 30 0RF Discontinued hydroxyzine pamoate 25 mg capsule 1 cap PO Q6H PRN (Reason: anxiety) aripiprazole 15 mg tablet 1 tab PO DAILY bupropion HCl 300 mg tablet extended release 24 hr 1 tab PO DAILY Discharge Orders: Discharge Order (Routine); Ordered 05/18/22 Ordered By: Keshawn Araujo Diet: Regular diet Activity on Discharge: As tolerated Stand Alone Forms: Patient Portal Discharge page Care Plan Goals: Maintain mood and safe behaviors Take medications as prescribed Continue to pursue sobriety Practice coping skills Continue with outpatient providers and reach out to them as needed Health Concerns: Mood stability and behaviors Sobriety Plan of Treatment: Follow up with your PCP, psychiatric provider and other outpatient providers regarding above concerns Take medications as prescribed Assessment: Risk assessment at time of discharge:? Patient was interviewed prior to discharge and found to be fully oriented and without any SI or HI. Patient has insight and demonstrates good judgment in terms of wanting to pursue treatment. Patient is not in imminent risk of harm to self or others and has a safety plan that includes presenting to the closest ER or calling 911 if feeling unsafe.? Patient has been observed closely by nursing and unit staff throughout admission; patient has not engaged in any behaviors that suggest dangerousness to self or others and has demonstrated appropriate behaviors and impulse control
[2022-05-17 19:51] VITALS: BP 134/62; PULSE 93; TEMP 36.4
[2022-05-17] MEDS: Melatonin 3 MG TABLET 9 MG PO (20:38)
[2022-05-17] MEDS: traZODone HCL 100 MG TABLET PO (20:38)
[2022-05-17] MEDS: Acetaminophen 325 MG TABLET 650 MG PO (20:44)
[2022-05-17 22:31] LABS: COVID-19 Test Negative (Negative); IDNOW Serial# 55D5AD1C
[2022-05-18] MEDS: buPROPion HCl XL 150 MG TAB.ER.24H 450 MG PO (08:55)
[2022-05-18] MEDS: Cholecalciferol (Vitamin D3) 25 MCG TABLET PO (08:55)
[2022-05-18] MEDS: Folic Acid 1 MG TABLET PO (08:55)
[2022-05-18] MEDS: lamoTRIgine 100 MG TABLET 200 MG PO (08:55)
[2022-05-18] MEDS: ARIPiprazole 20 MG TABLET PO (08:55)
[2022-05-18] MEDS: Acetaminophen 325 MG TABLET 650 MG PO (08:56)
[2022-05-18 08:58] VITALS: BP 135/65; PULSE 100; RESP 18; TEMP 36.2; O2SAT 97
== END 2022-05-18 10:15 | disposition home or self-care (01) | DRG 885 ==
LOC: HO.ED 05-11 11:14 → HO.PM5 05-11 12:46
PROVIDERS: Registered Nurse; Admitting Provider Psychiatry & Neurology Psychiatry; Emergency Provider Emergency Medicine; Visit Provider Psychiatry & Neurology Psychiatry
DX: F31.81 Bipolar II disorder (principal); Z20.822 Contact with and (suspected) exposure to COVID-19; Z88.0 Allergy status to penicillin; Z59.02 Unsheltered homelessness; Z79.899 Other long term (current) drug therapy
CPT/HCPCS: 80048; 80076; 80307; 81025; 83735; 85025; 87635; 99285